=== PATIENT | male | born 1960 | race Caucasian/White ===

== ENCOUNTER 2017-01-11 11:47 | Emergency (ER) | payer OTHER ==
[~2017-01-11] VITALS: Ht 170.2 cm; Wt 86.2 kg
--- NOTE | ~2017-01-11 | CR172 ---
[facility] A Service [facility] RADIOLOGY TEXT RESULTS PATIENT: SOUMYA WILL LOCATION: [facility] : 64 UNIT #: [id number] AGE: [address]: Ailyn Kennedy SEX: M ORDER DR: [id number] [place], [place] [address] [id number] MR#: [id number] #: [id number] NAME: SOUMYA WILL : 1960 SEX: M STUDY DATE/TIME: 01/11/2017 12:10 UNIT: [id number] ROOM: STUDY DESCRIPTION: CR Knee 3 Views Lt Attending Physician: Ailyn Kennedy Pa-C Ordering Physician: Ed Jairo Boyd M.D. Primary Care Physician: No Primary Care Physician MEDICAL IMAGING REPORT This report is preliminary unless electronic signature is present EXAM Left knee series 3 views 01/11/2017 INDICATIONS 56-year-old male with pain for 6 weeks after hitting the knee again against a metal post. TECHNIQUE 3 views left knee. COMPARISONS No comparisons. FINDINGS No acute fracture identified. Mild degenerative change in the patellofemoral and medial compartments. No joint effusion. Atherosclerotic calcifications are present. There are additional metallic calcifications projecting over the mid shaft tibia and fibula on the frontal projection, suggesting retained opaque foreign bodies, likely chronic and related to a healed fracture deformity of the tibia. Correlate with patient history in this regard. We have no comparisons. IMPRESSION 1. No acute fracture or joint effusion. 2. Mild degenerative change. 3. Old healed fracture deformity of the tibia with probable chronic retained opaque foreign bodies projecting over the tibia and fibula on the frontal view. Correlate with history. Dictated by... [facility] A Service [facility] RADIOLOGY TEXT RESULTS PATIENT: SOUMYA WILL LOCATION: [place] : 64 UNIT #: [id number] AGE: [address]: Ailyn Kennedy SEX: M ORDER DR: Charles Reid M.D. THIS IS AN ELECTRONICALLY VERIFIED REPORT Charles Reid M.D. at 01/12/2017 7:19 AM Tati TD: 01/11/2017 18:23 JOB #: [id number] MEDICAL IMAGING REPORT Page 1 of 1 COPY
== END 2017-01-11 13:06 | disposition home or self-care (01) ==
LOC: CED 11:47 → CFTX 11:47
DX: M25.562 Pain in left knee (principal); F17.200 Nicotine dependence, unspecified, uncomplicated
CPT/HCPCS: 29530; 73562; 99283

== ENCOUNTER 2017-01-16 17:30 | Emergency (ER) | payer OTHER ==
[~2017-01-16] VITALS: Ht 170.2 cm; Wt 82.5 kg
== END 2017-01-16 18:15 | disposition home or self-care (01) ==
LOC: CFTX 17:30 → CED 17:30 → CFTX 18:15
DX: M84.462A Pathological fracture, left tibia, initial encounter for fracture (principal); Z76.0 Encounter for issue of repeat prescription; F17.210 Nicotine dependence, cigarettes, uncomplicated
CPT/HCPCS: 99283